=== PATIENT | male | born 1960 | race African-American/Black ===

== ENCOUNTER 2025-04-02 04:31 | Inpatient (IN) | payer OTHER ==
[~2025-04-02] VITALS: Ht 157.5 cm; Wt 98.9 kg
[2025-04-02 05:18] LABS: BASOPHILS % 0.4 % (0.0-2.0); EOSINOPHILS % 3.4 % (0.0-5.0); HEMOGLOBIN. 13.3 g/dL (14.0-18.0); LYMPHOCYTES % 14.9 % (20.0-50.0); MEAN CORPUSCULAR HEMOGLOBIN 28.5 pg (28.0-32.0); MEAN CORPUSCULAR HGB CONC 33.3 g/dL (31.0-37.0); MEAN CORPUSCULAR VOLUME 85.8 fL (80.0-94.0); MEAN PLATELET VOLUME 8.2 fl (7.4-10.4); NEUTROPHILS % 69.3 % (40.0-76.0); PLATELET 235 x1000/uL (130-400); RED BLOOD CELL COUNT 4.66 mill/uL (4.7-6.1); RED CELL DISTRIBUTION WIDTH 13.6 % (11.6-14.6); WHITE BLOOD COUNT 5.9 x1000/uL (4.5-11.0)
[2025-04-02 05:41] LABS: *AMPHETAMINES SCREEN URINE NEGATIVE (NEGATIVE); *BARBITURATES SCREEN URINE NEGATIVE (NEGATIVE); *BENZODIAZEPINES SCREEN URINE NEGATIVE (NEGATIVE); *COCAINE SCREEN URINE NEGATIVE (NEGATIVE); CANNABINOID URINE SCREEN NEGATIVE (NEGATIVE); ECSTASY MDMA SCREEN URINE NEGATIVE (NEGATIVE); METHADONE URINE SCREEN NEGATIVE (NEGATIVE); OPIATES URINE SCREEN NEGATIVE (NEGATIVE); PHENCYCLIDINE URINE SCREEN NEGATIVE (NEGATIVE)
[2025-04-02 05:42] LABS: PROTHROMBIN TIME 10.5 sec (9.6-11.0)
[2025-04-02 05:43] LABS: CHLORIDE 105 mEq/L (98-107); POTASSIUM 3.6 mEq/L (3.5-5.1); SODIUM 141 mEq/L (136-145)
[2025-04-02 05:44] LABS: CALCIUM 8.9 mg/dL (8.7-10.4); CARBON DIOXIDE 29 mEq/L (21-32)
[2025-04-02 05:49] LABS: ETHANOL BLOOD 22 mg/dL (<10); GLUCOSE 150 mg/dL (70-105); UREA NITROGEN BLOOD 16 mg/dL (9-23)
[2025-04-02 05:50] LABS: TROPONIN I HIGH SENSITIVITY 4 ng/L (3.0-53)
[2025-04-02 10:45] VITALS: BP 165/97; PULSE 77; RESP 19; TEMP 36.7; O2SAT 99
[2025-04-02] MEDS ORDERED: LISI10TA26 PO (11:47)
[2025-04-02] MEDS ORDERED: MELA1TAB28 PO (11:47)
[2025-04-02] MEDS ORDERED: SILD20TA13 PO (11:56)
[2025-04-02] MEDS ORDERED: CHOL400D7 PO (11:56)
[2025-04-02] MEDS ORDERED: ASPI-1073 PO (11:56)
[2025-04-02] MEDS ORDERED: ATOR20TA65 PO (11:56)
[2025-04-02] MEDS ORDERED: TAMS-54 PO (11:56)
[2025-04-02] MEDS ORDERED: AMLO10TA80 PO (11:56)
[2025-04-02 12:00] VITALS: BP 148/81; PULSE 79; RESP 18; RESP 19; TEMP 36.6; O2SAT 99
[2025-04-02] MEDS ORDERED: ZOLPIDEM TARTRATE 5MG TABLET PO PRN (12:00)
[2025-04-02] MEDS ORDERED: DIPHENHYDRAMINE 50MG/ML VIAL IV PRN (12:00)
[2025-04-02] MEDS ORDERED: ONDANSETRON HCL 4MG/2ML INJ IV PRN (12:00)
[2025-04-02] MEDS ORDERED: ACETAMINOPHEN 325MG TABLET PO PRN (12:00)
[2025-04-02] MEDS ORDERED: CLONIDINE 0.1MG TABLET PO PRN (12:00)
[2025-04-02] MEDS ORDERED: MAGNESIUM/ALUMINUM HYDROXIDE/SIMETHICONE 30ML UDC PO PRN (12:00)
[2025-04-02] MEDS ORDERED: KETOROLAC 30MG/ML VIAL IV PRN (12:00)
[2025-04-02] MEDS: METOPROLOL TARTRATE 25MG TABLET PO SCH (12:21)
[2025-04-02] MEDS: ISOSORBIDE MONONITRATE 30MG TABLET SR 24HR PO SCH (12:21)
[2025-04-02] MEDS: SODIUM CHLORIDE 0.9% 3ML FLUSH IVF SCH (12:23)
[2025-04-02] MEDS: ENOXAPARIN 30MG/0.3ML SYR SUBCUT SCH (14:17)
[2025-04-02 15:20] LABS: TROPONIN I HIGH SENSITIVITY 4 ng/L (3.0-53)
[2025-04-02 16:00] VITALS: BP 140/73; RESP 19; TEMP 36.4; O2SAT 99
[2025-04-02 20:00] VITALS: BP 173/97; PULSE 71; RESP 18; TEMP 36.8; O2SAT 98
[2025-04-02] MEDS: PANTOPRAZOLE 40MG DR TABLET PO SCH (21:01)
[2025-04-03] VITALS: BP 149/93; PULSE 74; RESP 20; TEMP 37; O2SAT 97
[2025-04-03 04:00] VITALS: BP 156/87; PULSE 83; RESP 18; TEMP 37.6; O2SAT 98
[2025-04-03 08:00] VITALS: BP 162/86; PULSE 86; RESP 18; TEMP 36.5; O2SAT 98
[2025-04-03] MEDS: GUAIFENESIN 200MG/10ML SUGAR FREE UDC PO PRN (10:03)
[2025-04-03 12:00] VITALS: BP 147/97; PULSE 71; RESP 17; TEMP 36.9; O2SAT 95
[2025-04-03 16:00] VITALS: BP 138/75; PULSE 75; RESP 16; TEMP 36.1; O2SAT 97
[2025-04-03 20:27] VITALS: BP 155/87; PULSE 79; RESP 20; TEMP 38; O2SAT 98
[2025-04-04] VITALS: BP 149/90; PULSE 74; RESP 20; TEMP 38.6; O2SAT 96
[2025-04-04 04:00] VITALS: BP 145/86; PULSE 71; RESP 20; TEMP 38.8; O2SAT 96
[2025-04-04] MEDS: ACETAMINOPHEN 325MG TABLET PO PRN (04:04)
[2025-04-04 07:52] VITALS: BP 145/86; PULSE 67; RESP 20; TEMP 36.2; O2SAT 99
[2025-04-04 12:00] VITALS: BP 115/82; PULSE 58; RESP 20; TEMP 36.2; O2SAT 98
[2025-04-04] MEDS ORDERED: METOPROLOL TARTRATE 5MG/5ML VIAL IV PRN (13:00)
[2025-04-04 14:32] VITALS: BP 115/82; PULSE 71; TEMP 97.1; O2SAT 98
[2025-04-04 15:57] VITALS: BP 125/78; PULSE 71; RESP 18; TEMP 36.1; O2SAT 100
[2025-04-05] MEDS ORDERED: FAMOTIDINE 20MG TABLET PO SCH (09:00)
== END 2025-04-04 15:30 | disposition home or self-care (01) | DRG 311 ==
LOC: ER 04:46 → EDBEDREQ 09:50 → 7WST 10:28
PROVIDERS: ADMIT Internal Medicine; ATTEND Internal Medicine
DX: I20.0 Unstable angina (principal); I16.0 Hypertensive urgency; I10 Essential (primary) hypertension; E78.5 Hyperlipidemia, unspecified; I25.2 Old myocardial infarction; Z79.899 Other long term (current) drug therapy; Z95.5 Presence of coronary angioplasty implant and graft
CPT/HCPCS: 36415; 71045; 80048; 80305; 80320; 83880; 84484; 85025; 93005; 93306; 99285; J1650; G0480